=== PATIENT | male | born 1960 | race Caucasian/White ===

== ENCOUNTER 2017-07-13 23:23 | Inpatient (IN) | payer MEDICAID ==
[~2017-07-13] VITALS: Ht 172.7 cm; Wt 90.7 kg
--- NOTE | 2017-07-14 | NUR ---
PT BIB C/O " LEFT SIDED CP X3 HOURS" PT AOX3 RR EVEN AND UNLABORED. NO SOB NOTED. NAD NOTED. NO NVD AT THIS TIME. PT NOT DIAPHORETIC. PT GOWNED AND PLACED ON MONITOR WAITING FOR MD BREWER.
--- NOTE | 2017-07-14 00:03 | NUR ---
DR. MASON AT BEDSIDE FOR EVAL.
[2017-07-14] MEDS ORDERED: IV NS 0.9% 1,000 ML BAG IV ONE ×2 (00:30→02:30)
[2017-07-14] MEDS ORDERED: ASPIRIN 325 MG TABLET PO ONE (00:30)
--- NOTE | 2017-07-14 00:34 | NUR ---
RADIOLOGY AT BEDSIDE FOR CXR
[2017-07-14 00:37] LABS: BASOPHILS # (AUTO) 0.1 /CMM (0.0-0.2); BASOPHILS % (AUTO) 0.5 % (0.0-2.0); EOSINOPHILS # (AUTO) 0.2 /CMM (0.0-0.7); EOSINOPHILS % (AUTO) 1.7 % (0.0-6.0); HEMATOCRIT 49 % (39-51); HEMOGLOBIN 17.2 g/dL (13.5-17.5); LYMPHOCYTES # (AUTO) 2.4 /CMM (0.8-4.8); LYMPHOCYTES % (AUTO) 22.2 % (20.0-44.0); MEAN CORPUSCULAR HEMOGLOBIN 32 PG (26.0-33.0); MEAN CORPUSCULAR HGB CONC 35 g/dl (31.0-36.0); MEAN CORPUSCULAR VOLUME 90 fL (80-96); MONOCYTES # (AUTO) 0.6 /CMM (0.1-1.30); MONOCYTES % (AUTO) 5.4 % (2.0-12.0); NEUTROPHILS # (AUTO) 7.6 /CMM (1.8-8.9); NEUTROPHILS % (AUTO) 70.2 % (43.0-81.0); PLATELET COUNT (AUTO) 286 /CMM (150-450); RDW COEFFICIENT OF VARIATION 13.3 (11.5-15.0); RED BLOOD CELL COUNT(AUTO) 5.44 MIL/uL (4.5-6.0); WHITE BLOOD COUNT (AUTO) 10.9 K/uL (4.3-11.0)
[2017-07-14] MEDS ORDERED: ASPIRIN 325 MG TABLET ONE (00:38)
[2017-07-14 00:47] LABS: CALCIUM, SERUM 9.6 mg/dL (8.5-10.1); CREATININE 2.1 mg/dL (0.6-1.3); POTASSIUM 3.4 mmol/L (3.5-5.1)
[2017-07-14 00:51] LABS: INR 0.9 (0.87-1.13)
[2017-07-14 01:15] LABS: TROPONIN I 0.098 ng/mL (0.00-0.056)
--- NOTE | 2017-07-14 02:06 | NUR ---
DR. MASON AT BEDSIDE SPEAKING TO PT REGARDING RESULTS.
--- NOTE | 2017-07-14 02:22 | NUR ---
DR. MASON SPOKE TO CONSTANTINO SUAZO REGARDING ADMISSION
[2017-07-14] MEDS ORDERED: POTASSIUM CHLORIDE 10 MEQ TABLET.SA ONE (02:24)
[2017-07-14] MEDS ORDERED: IV NS 0.9% 1,000 ML IV PRN (02:24)
[2017-07-14] MEDS ORDERED: MAGNESIUM HYDROXIDE 30 ML UDC PO PRN (02:30)
[2017-07-14] MEDS ORDERED: MORPHINE SULFATE INJ 2 MG/ML DISP.SYRIN IV PRN (02:30)
[2017-07-14] MEDS ORDERED: ACETAMINOPHEN 325 MG TABLET PO PRN (02:30)
[2017-07-14] MEDS ORDERED: POTASSIUM CHLORIDE 10 MEQ TABLET.SA PO ONE (02:30)
[2017-07-14] MEDS ORDERED: HYDROCODONE/APAP 5/325MG 1 EACH TABLET PO PRN (02:30)
[2017-07-14] MEDS ORDERED: ONDANSETRON HCL/PF 4 MG/2 ML VIAL IVP PRN (02:30)
[2017-07-14] MEDS ORDERED: MAG HYDROX/AL HYDROX/SIMETH 30 ML UDC PO PRN (02:30)
[2017-07-14] MEDS ORDERED: Z GUARD REMEDY 2 OZ OINT TP PRN (02:30)
[2017-07-14] MEDS ORDERED: HEPARIN INFUSION/D5W 500 ML IV ONE (03:15)
[2017-07-14] MEDS ORDERED: HEPARIN SODIUM, PORCINE 5000 UNITS/1 ML VIAL ONE (03:15)
--- NOTE | 2017-07-14 03:23 | NUR ---
VERIFIED HEPARIN 4000 UNIT DOSE WITH SADE GUZMÁN
--- NOTE | 2017-07-14 03:25 | NUR ---
PER DR. MASON TO START HEPARIN DRIP AT 1,000 UNITS/ HR. VERIFIED BY 2ND RN KING.
--- NOTE | 2017-07-14 03:29 | NUR ---
CHRISTIE 105-1
[2017-07-14] MEDS ORDERED: HEPARIN INFUSION/D5W 500 ML IV PRN (03:30)
[2017-07-14] MEDS ORDERED: HEPARIN SODIUM, PORCINE 5000 UNITS/1 ML VIAL IV ONE ×2 (03:30→12:30)
--- NOTE | 2017-07-14 03:42 | NUR ---
REPORT GIVEN TO SADE DIALLO FOR CHRISTIE BED 105
--- NOTE | 2017-07-14 03:45 | NUR ---
UNABLE TO OBTAIN MED RECON AT THIS TIME, PER PT STATES WILL BRING MEDICATION IN AM
--- NOTE | 2017-07-14 04:49 | NUR ---
PT TRANSFERRED PER ACLS PROTOCOL.
[2017-07-14] MEDS: HEPARIN INFUSION/D5W 500 ML IV PRN (05:15)
[2017-07-14 06:18] VITALS: BP 141/70
--- NOTE | 2017-07-14 07:30 | NUR ---
CHRISTIE RN AM NOTE PT IN BED, AAO X 4, ABLE TO VERBALIZE NEEDS. ON ROOM AIR AND SATURATING WELL. BREATHING EVEN, REGULAR AND UNLABORED. RAC G 18 WITH HEPARIN DRIP AT 1000 U/HR, AND RFA G18 WITH NS AT 75 ML/HR INFUSING WELL, BOTH SITES CLEAR. ON CCHO/CARDIAC DIET. PER DIRECT MAIL MARKETER WILL BRING MED LIST OR MEDICATIONS. AMBULATORY, NO SKIN ISSUES. CALL LIGHT WITHIN REACH. WILL CONTINUE TO MONITOR.
--- NOTE | 2017-07-14 07:52 | NUR ---
CHRISTIE RN NOTE PT REMAINED STABLE DURING SHIFT. A/O X4 AND ABLE TO VERBALIZE NEEDS. ON ROOM AIR AND SATURATING WELL. BREATHING EVEN, REGULAR AND UNLABORED. IV SITES IN PLACE WITH HEPARIN AND NS INFUSING AT THIS TIME. PT SAID WILL BRING MED LIST OR MEDICATIONS. CALL LIGHT WITHIN REACH. WILL ENDORSE TO NEXT SHIFT FOR CONTINUITY OF CARE.
[2017-07-14 08:00] VITALS: BP 157/77
[2017-07-14] MEDS ORDERED: ATOR40TA PO (08:58)
[2017-07-14] MEDS ORDERED: BLOO-668 IN (08:58)
[2017-07-14] MEDS ORDERED: CLOP75TA15 PO (08:58)
[2017-07-14] MEDS ORDERED: FURO20TA4 PO (08:58)
[2017-07-14] MEDS ORDERED: ASPI81TA35 PO (08:58)
[2017-07-14] MEDS ORDERED: INSU100I26 SQ (08:58)
[2017-07-14] MEDS ORDERED: CARV6.252 PO (08:58)
[2017-07-14] MEDS ORDERED: INSU100V3 SQ (08:58)
[2017-07-14] MEDS ORDERED: AMLO1CAP10 PO (08:58)
[2017-07-14] MEDS ORDERED: AMIO200T2 PO (08:58)
[2017-07-14] MEDS ORDERED: SITA100T PO (08:58)
[2017-07-14] MEDS ORDERED: GLIM4TAB2 PO (08:58)
[2017-07-14] MEDS ORDERED: CILO50TA PO (08:58)
[2017-07-14] MEDS ORDERED: INSU100V7 SQ (11:23)
[2017-07-14 12:00] VITALS: BP 150/70
--- NOTE | 2017-07-14 12:13 | NUR ---
CARE NAVIGATOR NOTES APTT FOR 929, HEPARIN ADJUSTED TO 1250 U/HR. WILL REPEAT PTT IN 6 HOURS.
[2017-07-14 12:59] LABS: THYROID STIMULATING HORMONE 0.775 uIU/mL (0.358-3.74)
[2017-07-14] MEDS: CARVEDILOL 12.5 MG TABLET PO SCH ×2 (13:11→23:04)
[2017-07-14] MEDS: ATORVASTATIN 40 MG TABLET PO SCH (13:11)
[2017-07-14] MEDS: PANTOPRAZOLE 40 MG TABLET.DR PO SCH (13:11)
[2017-07-14] MEDS: ASPIRIN 81 MG TAB.CHEW PO SCH (13:21)
[2017-07-14] MEDS ORDERED: DEXTROSE 50%-WATER 50 ML DISP.SYRIN IV PRN (13:30)
[2017-07-14] MEDS ORDERED: INSULIN REGULAR, HUMAN 100 UNIT/ML 3 ML VIAL SQ ONE (14:00)
--- NOTE | 2017-07-14 14:18 | NUR ---
SUPERVISOR DIMENSION WAREHOUSE NOTES DR. JOSÉ LUIS Brown, NOTIFIED PT'S DAUGHTER CHECKED BS AND IT IS 400 MG/DL, PER MD TO GIVE 10 UNITS HUM R SUBCUT ONE TIME.
[2017-07-14 16:00] VITALS: BP_SYST 146; BP_SYST 148; BP_DIAS 72; BP_DIAS 76
--- NOTE | 2017-07-14 16:24 | NUR ---
TRACK LAYING EQUIPMENT OPERATOR NOTES APTT FOR 99, HOLD HEPARIN FOR 60 MINUTES, THEN RE START DECREASE BY 250 UNITS. WILL REPEAT PTT IN 6 HOURS.
[2017-07-14] MEDS: BLOOD SUGAR DIAGNOSTIC 1 EACH STRIP IN SCH ×2 (16:52→22:52)
--- NOTE | 2017-07-14 16:52 | NUR ---
SECURITY SYSTEM SALES CONSULTANT NOTES ACCUCHECK. BS 349 MG/DL, ADMINISTERED 8 UNITS HUM R PER SS.
[2017-07-14] MEDS: INSULIN REGULAR, HUMAN 100 UNIT/ML 3 ML VIAL SQ PRN ×2 (17:00→23:01)
--- NOTE | 2017-07-14 17:26 | NUR ---
CULINARY INTERNSHIP NOTES HEPARIN DRIP RE STARTED AT 1000 U /HR. REPEAT PTT AT 2330.
[2017-07-14] MEDS: NICOTINE PATCH (21MG) 21 MG PATCH.TD24 TD SCH (18:16)
--- NOTE | 2017-07-14 19:30 | NUR ---
TELE / RN NOTES: RECEIVED PT. IN BED A/O X 4. W/ AT BEDSIDE. DENIES ANY C/O CHEST PAIN OR SOB AT PRESENT. PT. IS CONTINENT OF B/B. ON HEPARIN DRIP AT 1000 UNITS /HR. PTT AT 2330 NEGRITA. CALL LIGHT W/ REACH. PT. IS NPO STATUS AFTER MIDNIGHT. ON IVF OF NS AT 75 CC/HR. WILL CONTINUE TO MONITOR.
--- NOTE | 2017-07-14 19:56 | NUR ---
MOTOR VEHICLES INSPECTOR NOTES PATIENT RESTING COMFORTABLY, NOT IN ANY DISTRESS. DENIES SOB OR PAIN. IVF AND HEPARIN DRIP ONGOING. ALL NEEDS MET. CALL LIGHT WITHIN REACH. NO OTHER SIGNIFICANT CHANGE IN CONDITION. ENDORSED TO NEXT SHIFT FOR MARYSE. NPO POST MIDNIGHT FOR NM STRESS TEST IN AM PER DR. MARTIN. FOLLOW UP ON CONSENT.
[2017-07-14 20:00] VITALS: BP 150/79
[2017-07-14 20:27] LABS: ALBUMIN 4.2 g/dL (3.4-5.0); BILIRUBIN,TOTAL 0.3 mg/dL (0.2-1.0); CALCIUM, SERUM 10.2 mg/dL (8.5-10.1); CREATININE 2.1 mg/dL (0.6-1.3); MAGNESIUM 2.2 mg/dL (1.8-2.4); PHOSPHORUS 4.5 mg/dL (2.5-4.9); POTASSIUM 3.8 mmol/L (3.5-5.1); TOTAL PROTEIN, SERUM 7.6 g/dL (6.4-8.2)
[2017-07-14] MEDS ORDERED: INSULIN GLARGINE, 100 UNIT/ML CARTRIDGE SQ SCH (22:00)
[2017-07-15] VITALS: BP 164/82
--- NOTE | 2017-07-15 00:15 | NUR ---
TELE/RN NOTES: PTT = 35. INCREASED HEPARIN TO 1250 UNITS /HR. AND BOLUS OF 5400 UNITS PER PROTOCOL. CHARGE NURSE AWARE. NEXT PTT WILL BE 6:30 A.M. CALL LIGHT W/ REACH.
[2017-07-15] MEDS ORDERED: HEPARIN SODIUM, PORCINE 5000 UNITS/1 ML VIAL IV ONE (00:30)
[2017-07-15 04:00] VITALS: BP 138/78
[2017-07-15] MEDS: HEPARIN INFUSION/D5W 500 ML IV PRN (04:24)
[2017-07-15 06:53] LABS: BASOPHILS % (AUTO) 0.5 % (0.0-2.0); EOSINOPHILS # (AUTO) 0.1 /CMM (0.0-0.7); EOSINOPHILS % (AUTO) 1.7 % (0.0-6.0); HEMATOCRIT 41 % (39-51); HEMOGLOBIN 14.5 g/dL (13.5-17.5); LYMPHOCYTES # (AUTO) 3.5 /CMM (0.8-4.8); LYMPHOCYTES % (AUTO) 39.3 % (20.0-44.0); MEAN CORPUSCULAR HEMOGLOBIN 32 PG (26.0-33.0); MEAN CORPUSCULAR HGB CONC 35 g/dl (31.0-36.0); MEAN CORPUSCULAR VOLUME 91 fL (80-96); MONOCYTES # (AUTO) 0.4 /CMM (0.1-1.30); MONOCYTES % (AUTO) 4.6 % (2.0-12.0); NEUTROPHILS # (AUTO) 4.8 /CMM (1.8-8.9); NEUTROPHILS % (AUTO) 53.9 % (43.0-81.0); PLATELET COUNT (AUTO) 203 /CMM (150-450); RED BLOOD CELL COUNT(AUTO) 4.57 MIL/uL (4.5-6.0); WHITE BLOOD COUNT (AUTO) 8.8 K/uL (4.3-11.0)
[2017-07-15 07:10] LABS: ALBUMIN 2.9 g/dL (3.4-5.0); BILIRUBIN,TOTAL 0.5 mg/dL (0.2-1.0); CALCIUM, SERUM 8.4 mg/dL (8.5-10.1); CREATININE 1.3 mg/dL (0.6-1.3); MAGNESIUM 1.6 mg/dL (1.8-2.4); PHOSPHORUS 4.3 mg/dL (2.5-4.9); POTASSIUM 3.4 mmol/L (3.5-5.1); TOTAL PROTEIN, SERUM 6.2 g/dL (6.4-8.2); TROPONIN I 0.11 ng/mL (0.00-0.056)
[2017-07-15 07:12] LABS: THYROID STIMULATING HORMONE 1.055 uIU/mL (0.358-3.74)
--- NOTE | 2017-07-15 07:16 | NUR ---
TELE /RN NOTES: NO ACUTE CHANGES NOTED DURING THIS SHIFT. STILL W/ HEPARIN DRIP. REPORT GIVEN TO AM SHIFT NURSE FOR MARYSE.
--- NOTE | 2017-07-15 07:30 | NUR ---
HIDE MILL MAN AM NOTE PT IN BED, AAO X 4, ABLE TO VERBALIZE NEEDS. ON ROOM AIR AND SATURATING WELL. BREATHING EVEN, REGULAR AND UNLABORED. RAC G 18 AND RFA G18 WITH NS AT 75 ML/HR INFUSING WELL, BOTH SITES CLEAR. ON CCHO/CARDIAC DIET. NO SKIN ISSUES. AMBULATORY, NO SKIN ISSUES. CALL LIGHT WITHIN REACH. WILL CONTINUE TO MONITOR.
--- NOTE | 2017-07-15 07:55 | NUR ---
STRATEGIC COMMUNICATIONS SPECIALIST NOTES PTT = 77. HEPARIN DRIP ADJUSTED FROM 1250 TO 1150 UNIT/HR
[2017-07-15 08:00] VITALS: BP 130/65
[2017-07-15] MEDS ORDERED: REGADENOSON 0.4 MG/5 ML DISP.SYRIN IVP ONE (08:00)
[2017-07-15] MEDS: BLOOD SUGAR DIAGNOSTIC 1 EACH STRIP IN SCH ×2 (08:06→11:48)
--- NOTE | 2017-07-15 08:06 | NUR ---
SPRAY RIG OPERATOR NOTES ACCUCHECK DONE. BS 201 MG/DL. ADMINISTERED 4 UNITS HUM R PER SS.
--- NOTE | 2017-07-15 08:07 | NUR ---
CARBON LAMP CLEANER NOTES DC HEPARIN DRIP PER DR MARTIN.
[2017-07-15] MEDS: INSULIN REGULAR, HUMAN 100 UNIT/ML 3 ML VIAL SQ PRN ×2 (08:15→11:58)
--- NOTE | 2017-07-15 08:22 | NUR ---
MOID MIDDLE SCHOOL TEACHER NOTES PATIENT PICKED UP FOR PROCEDURE
[2017-07-15] MEDS ORDERED: ASPIRIN 81 MG TAB.CHEW PO SCH (09:00)
[2017-07-15] MEDS: ASPIRIN 81 MG TAB.CHEW PO SCH (09:52)
[2017-07-15] MEDS: NICOTINE PATCH (21MG) 21 MG PATCH.TD24 TD SCH (09:52)
[2017-07-15] MEDS: ATORVASTATIN 40 MG TABLET PO SCH (09:52)
[2017-07-15] MEDS: PANTOPRAZOLE 40 MG TABLET.DR PO SCH (09:52)
[2017-07-15] MEDS: CARVEDILOL 12.5 MG TABLET PO SCH (09:53)
[2017-07-15] MEDS ORDERED: POTASSIUM CHLORIDE 20 MEQ TAB.PRT.SR PO SCH (11:30)
[2017-07-15] MEDS: Magnesium 1GM/D5W 100ML PREMIX 100 ML IV SCH ×2 (11:44→13:39)
--- NOTE | 2017-07-15 11:44 | NUR ---
MS RN NOTES MAGNESIUM BAG #1 STARTED
--- NOTE | 2017-07-15 11:48 | NUR ---
ELECTRICIAN TELEPHONE NOTES ACCUCHECK DONE. BS 270 MG/DL. ADMINISTERED 6 UNITS HUM R PER SS.
[2017-07-15] MEDS ORDERED: CARV12.52 PO (12:58)
[2017-07-15] MEDS ORDERED: VALS40TA4 PO (13:11)
--- NOTE | 2017-07-15 13:39 | NUR ---
MS RN NOTES MAGNESIUM BAG #2 STARTED
[2017-07-15 17:37] VITALS: BP 130/70
--- NOTE | 2017-07-15 17:37 | NUR ---
MS SADE NOTES PATIENT DISCHARGED TO HOME TODAY PER MD IN STABLE CONDITION. PROVIDED DC INSTRUCTIONS, MED RECON LIST, AND HEALTH TEACHINGS. PATIENT TO FOLLOW UP WITH PCP IN 1 WEEKS AND WILL MAKE OWN APPOINTMENT. PROVIDED PHONE NUMBER OF DR. SAUCEDO FOR VASCULAR CONSULT PER DR. STAFFORD. IV ACCESS REMOVED BY [employer] [place] CHARGE NURSE, CATH TIP COMPLETE, NO BLEEDING AND DRESSING APPLIED. ALL BELONGINGS CHECKED AND RETURNED. PRESCRIPTION ELECTRONICALLY FORWARDED TO PHARMACY OF CHOICE. ACCOMPANIED BY AUTHORIZATION REPRESENTATIVE VIA WHEELCHAIR TO [facility] AND WILL GO HOME VIA PRIVATE CAR BY CHART. Addendum: 07/15/17 at 1930 by HUAGN MOSES RN CORRECTION: SHOULD BE WILL GO HOME VIA PRIVATE CAR BY .
[2017-07-16 16:50] LABS: PTH, INTACT 55 pg/mL (15-65)
[2017-07-18 08:07] LABS: *SPE A/G RATIO 1.3 (0.7-1.7); *SPE ALBUMIN 3.2 g/dL (2.9-4.4); *SPE ALPHA-1-GLOBULIN 0.2 g/dL (0.0-0.4); *SPE BETA GLOBULIN 0.8 g/dL (0.7-1.3); *SPE GLOBULIN, TOTAL 2.5 g/dL (2.2-3.9); *SPE M-SPIKE Not Observed g/dL (Not Observed); *SPEGAMMA GLOBULIN 0.6 g/dL (0.4-1.8)
== END 2017-07-15 17:41 | disposition home or self-care (01) | DRG 190 ==
LOC: ER 23:28 → TELE-TD 07-14 03:33 → TELE1 07-14 11:29 → MEDSG1 07-15 10:30
PROVIDERS: ADMIT Nurse Practitioner Acute Care; ATTEND Nurse Practitioner Acute Care
DX: I21.A1 Myocardial infarction type 2 (principal); N17.0 Acute kidney failure with tubular necrosis; E11.22 Type 2 diabetes mellitus with diabetic chronic kidney disease; E11.51 Type 2 diabetes mellitus with diabetic peripheral angiopathy without gangrene; E11.319 Type 2 diabetes mellitus with unspecified diabetic retinopathy without macular edema; I12.9 Hypertensive chronic kidney disease with stage 1 through stage 4 chronic kidney disease, or unspecified chronic kidney disease; N18.9 Chronic kidney disease, unspecified; E78.5 Hyperlipidemia, unspecified; E87.6 Hypokalemia; K29.70 Gastritis, unspecified, without bleeding; I25.10 Atherosclerotic heart disease of native coronary artery without angina pectoris; Z95.5 Presence of coronary angioplasty implant and graft; Z95.1 Presence of aortocoronary bypass graft; Z91.14 Patient's other noncompliance with medication regimen; Z79.82 Long term (current) use of aspirin; E86.0 Dehydration; F17.200 Nicotine dependence, unspecified, uncomplicated; F10.10 Alcohol abuse, uncomplicated; K21.9 Gastro-esophageal reflux disease without esophagitis
CPT/HCPCS: 36415; 71045-TC; 76770-TC; 80048-TC; 80053-TC; 80061-TC; 82306; 82550-TC; 82962-TC; 83735-TC; 83970; 84100-TC; 84155; 84165; 84439-TC; 84443-TC; 84484-TC; 85025-TC; 85730-TC; 87081-TC; 93307-TC; A4606; A9502; G0480; J1644; J1815; J2785; J3475; J7030; Z7610

== ENCOUNTER 2018-03-05 15:27 | Emergency (ER) | payer MEDICAID ==
[~2018-03-05] VITALS: Ht 172.7 cm; Wt 88.5 kg
[~2018-03-05 15:27] MED LIST: AMIO200T4 PO; AMLO1CAP10 PO; ASPI81TA49 PO; ATOR40TA PO; BLOO-668 IN; CARV12.52 PO; CILO50TA PO; CLOP75TA15 PO; FURO20TA4 PO; GLIM4TAB2 PO; INSU100V3 SQ; INSU100V7 SQ; SITA100T PO; VALS40TA4 PO
[2018-03-05 15:30] VITALS: BP 155/90
[2018-03-05] MEDS ORDERED: KETOROLAC TROMETHAMINE INJ 30 MG/ML VIAL ONE (16:28)
[2018-03-05] MEDS ORDERED: KETOROLAC TROMETHAMINE INJ 60 MG/2 ML VIAL IM ONE (16:30)
== END 2018-03-05 16:55 | disposition home or self-care (01) ==
LOC: ER 15:27
DX: S33.5XXA Sprain of ligaments of lumbar spine, initial encounter (principal); M17.11 Unilateral primary osteoarthritis, right knee; I10 Essential (primary) hypertension; E78.5 Hyperlipidemia, unspecified; E11.9 Type 2 diabetes mellitus without complications; F17.200 Nicotine dependence, unspecified, uncomplicated; Z95.1 Presence of aortocoronary bypass graft; Z88.2 Allergy status to sulfonamides; Z79.4 Long term (current) use of insulin; Z79.899 Other long term (current) drug therapy; X58.XXXA Exposure to other specified factors, initial encounter; Y93.89 Activity, other specified; Y92.89 Other specified places as the place of occurrence of the external cause; Y99.8 Other external cause status
CPT/HCPCS: 73560; 96372; 99284; A4606; J1885; Z7610